=== PATIENT | male | born 1940 | race Caucasian/White ===

== ENCOUNTER → 2017-07-22 18:59 | Outpatient (CLI) | payer MEDICARE, SELFPAY | PROVIDERS: Visit Provider Nurse Practitioner Adult Health | DX: R31.9 Hematuria, unspecified (principal) | CPT/HCPCS: 87086 ==

== ENCOUNTER 2019-09-07 08:06 | Emergency (ER) | payer MEDICARE, OTHER, SELFPAY ==
[2019-09-07 08:07] VITALS: BP 149/94; PULSE 66; RESP 17; TEMP 36.4; O2SAT 96; BMI 29.1
--- NOTE | 2019-09-07 08:33 | CT_ITS ---
STUDY: CT ABDOMEN AND PELVIS WITH CONTRAST REASON FOR EXAM: Male, 78 years old. N/V/D, FEVER HX-BLADDER CA -- SURG-GB,APPY RADIATION DOSAGE (If Supplied By Facility): CTDIvol = ( 15.92 ) mGy, DLP = ( 1198.83 ) mGycm TECHNIQUE: Transaxial images were obtained from the dome of the diaphragm to the symphysis pubis without oral contrast. IV 100mL Isovue-300 was administered. Sagittal and coronal images were reconstructed. Individualized dose optimization techniques were used for this CT. COMPARISON: None. FINDINGS: Mild degree of increased markings at the lung bases suggestive of dependent bibasilar atelectasis. Minimal increased markings in the medial aspect of the right middle lobe suggestive of possible atelectasis and/or early infiltrate. There is a 5.3 mm noncalcified nodule in the anterior aspect of the right middle lobe as seen on axial image #4. A similar appearing nodule is seen along the lateral aspect of the right middle lobe as seen on axial image #3. Coronary artery calcification. Minimally dilated central intrahepatic biliary ducts most likely secondary to prior cholecystectomy. There are surgical clips in the gallbladder fossa consistent with a prior cholecystectomy. There are multiple benign calcified granulomata of the spleen. Normal pancreas. Normal bilateral adrenal glands. Normal right kidney. There is evidence of a left perinephric stranding. Mild degree of left hydronephrosis and left hydroureter due to a 3 mm calculus in the mid portion of the left ureter. Normal visualized stomach. Normal small intestine. Normal colon. The patient is status post appendectomy. There is diffuse atherosclerotic calcification of the abdominal aorta, without a demonstrated aneurysm. Normal inferior vena cava. Normal retroperitoneum. Normal urinary bladder. Inhomogeneous enlargement of the prostate. The prostate measures 5.8 cm x 5.6 cm. This causes indentation at the bladder base. Normal abdominal wall. There are degenerative changes of the visualized lumbar spine. CT/Abdomen/Pelvis W IV Cont ONLY IMPRESSION: 3 mm calculus in the left mid ureter causing left hydronephrosis and hydroureter with left perinephric stranding. There are 2 small noncalcified nodules in the right middle lobe. Electronically Signed: Tony Vance, at 9:33 EDT , Service support ,
--- NOTE | 2019-09-07 08:34 | ED.DCSUM_ITS ---
History of Present Illness Chief Complaint: Abd Pain Informant: Patient - Abdominal Pain/Flank Pain Onset: Yesterday Context: Sudden Onset Timing: Continuous - not colicky Quality: Aching, Cramping Location: LLQ Current Severity: Moderate Maximum Severity: Moderate Worsened by: Nothing Relieved by: Nothing - Nausea/Vomiting/Emesis GI Symptom: Negative for: Nausea, Vomiting - Diarrhea/Melena/Hematochezia GI Symptom: Negative for: Diarrhea, Melena, Hematochezia Associated Symptoms: Negative for: Dysuria, Frequency, Hematuria, Urgency Narrative: Relatively sudden onset of left lower quadrant pain, he states it was interestingly temporally associated with him taking his last of 3 days worth of antibiotic pills for urine infection. He said he had a kidney stone long ago but has never had this pain before. It does not radiate into his groin or his back or anywhere else, and there has been no migration. Denies any fevers. States he has been constipated before but had a fairly decent bowel movement this morning and did not have any improvement in the pain afterwards. No fevers. No nausea or vomiting. Prior appendectomy and cholecystectomy no other abdominal surgeries. - Past Medical History (1) Hyperlipidemia Status: Chronic (2) Bladder cancer Status: Resolved (3) History of recurrent UTI (urinary tract infection) Status: Chronic (4) BPH (benign prostatic hyperplasia) Status: Chronic Past Medical History - Allergies and Home Meds Allergies/Adverse Reactions: Allergies latex Allergy (Verified 09/07/19 08:35) Rash Kerlgoy-Hln-Luq Reductase Inhibitor Allergy (Verified 09/07/19 08:35) Pain in joints Primary Care Physician: Monica Ma MD [Primary Care Provider] - Review of Systems General: Denies: Chills, Fever, Sweats Eyes: Denies: Visual changes - bilaterally, Diplopia ENT: Denies: Rhinorrhea, Sore throat Cardiovascular: Denies: Chest pain, Palpitations Respiratory: Denies: Dyspnea, Cough, Dyspnea on exertion Gastrointestinal: Reports: Abdominal pain, Constipation. Denies: Nausea, Vomiting, Diarrhea, Melena, Hematochezia Genitourinary: Denies: Dysuria, Hematuria, Frequency Musculoskeletal: Denies: Back pain, Swelling, Extremity Pain Skin: Denies: Rash, Wounds Neurological: Denies: Headache, Weakness, Numbness Physical Exam Vital Signs/Narrative: Vital Signs Temp Pulse Resp BP Pulse Ox 09/07/19 08:07 97.5 F L 66 17 149/94 H 96 Inital Vital Signs reviewed: Yes General: Well nourished, Well developed, No Acute Distress Head: Normocephalic, Atraumatic Eyes: Perrl, EOMI ENT: Moist mucous membranes, No rhinorrhea Neck: Supple, Nontender Cardiovascular: Regular rate, Regular rhythm, No murmurs Respiratory: No distress, CTA bilaterally, Chest nontender Abdomen: Soft, Nondistended, Normal bowel sounds, Tender - LLQ only. Negative for: Guarding, Rebound tenderness, Pulsatile mass Back: Nontender, Normal Inspection. Negative for: CVA tenderness Extremities: Nontender, No edema Skin: Normal color, No rash, No Trauma Neurological: Alert, Oriented x3, Cranial nerves II-XII grossly intact, Normal Strength, Normal Sensation, Normal Gait Psychological: Normal affect, Normal Mood Diagnostic/Tx/Re-eval Impressions Abdomen/Pelvis CT 09/07/19 08:33 IMPRESSION: 3 mm calculus in the left mid ureter causing left hydronephrosis and hydroureter with left perinephric stranding. There are 2 small noncalcified nodules in the right middle lobe. Electronically Signed: Tony Pinky, at 9:33 EDT , Service support , 09/07/19 08:33 Abdomen/Pelvis W IV Cont ONLY [CT] Stat Laboratory Results 09/07/19 09/07/19 09/07/19 08:35 08:35 09:30 WBC 6.2 RBC 4.58 L Hgb 14.3 Hct 42.8 MCV 93.4 MCH 31.2 MCHC 33.4 RDW Std Deviation 40.1 RDW Coeff of Bambi 11.8 Plt Count 186 MPV 9.9 Immature Gran % (Auto) 0.300 Neut % (Auto) 75.1 H Lymph % (Auto) 9.3 L Osborne % (Auto) 14.7 H Eos % (Auto) 0.3 Baso % (Auto) 0.3 Absolute Neuts (auto) 4.7 Absolute Lymphs (auto) 0.58 L Nucleated RBC % 0 Sodium 136 Potassium 4.8 Chloride 103 Carbon Dioxide 27.0 Anion Gap 6 BUN 19 H Creatinine 1.53 H Estim Creat Clear Calc 44.38 Est GFR (MDRD) Af Amer 57 L Est GFR (MDRD) Non-Af 47 L BUN/Creatinine Ratio 12.4 Glucose 108 H Calcium 8.9 Urine Color Yellow Urine Clarity Sl. Cloudy Urine pH 6.0 Ur Specific [place] 1.015 Urine Protein 15 H Urine Glucose (UA) Normal Urine Ketones Negative Urine Occult Blood 150 H Urine Nitrite Negative Urine Bilirubin Negative Urine Urobilinogen Normal Ur Leukocyte Esterase 100 H Urine RBC 10-25 SEEN Urine WBC 10-25 SEEN Ur Squamous Epith Cells 0-5 SEEN Urine Bacteria 1+ Urine Mucus 0 SEEN - Medical Decision Making Patient was given morphine and some IV fluids, he felt much better afterwards. Results as above, all shows a 3 mm stone in the distal left ureter, with hydronephrosis, this is likely causing his symptoms. No evidence of diverticulitis. No leukocytosis. He does have some indicators of possible infection in his urine. He states he just finished what sounds like Bactrim 3- day course for that, he is well, not septic, and stable for discharge home so I will culture his urine, place him on cephalexin for 1 week, and we discussed expectant management for the small stone. Sent home with strainers, prescrip tion for analgesics, follow-up with urology if he goes more than 1 week without passing the stone, returning to the ER for intractable symptoms, fevers, etc. He is comfortable with that plan. ED Disposition - Plan for ED Patient: Disposition: Home or Assisted Living Diagnosis: Urolithiasis, Ureteral colic Instructions: ED Renal Stone w Colic Prescriptions: Cephalexin [Keflex] 500 mg PO 4X/DAY 7 Days #28 cap Transmission Status: Pending to [id number] Oxycodone HCl/Acetaminophen [Percocet 5/325] 1 tablet PO Q6H PRN PRN 3 Days #12 tablet PRN Reason: Pain Transmission Status: Received by [id number] Referrals: Monica Ma MD [Primary Care Provider] - Rex Arrieta MD [STAFF PHYSICIAN] - 1 Week if not improving
[2019-09-07 08:45] LABS: Absolute Lymphocyte Count 0.58 X10^3/uL (0.83-4.51); Absolute Neutrophil Count 4.7 X10^3/uL (2.0-7.7); Basophil# 0.02 X10^3/uL; Basophil% 0.3 % (0-1); Eosinophil# 0.02 X10^3/uL; Eosinophils% 0.3 % (0-5); Hematocrit 42.8 % (40-54); Hemoglobin 14.3 g/dL (13.0-16.5); Lymphocyte # 0.58 X10^3/ul (4.0); Lymphocyte % 9.3 % (19-41); Mean Corp Hgb Conc 33.4 g/dL (32-36); Mean Corpuscular Hgb 31.2 pg (27.0-32.0); Mean Corpuscular Volume 93.4 fL (80-94); Mean Platelet Vol. 9.9 fl (6.2-12.0); Monocyte# 0.91 X10^3/uL; Monocyte% 14.7 % (0-10); NRBC Flagged by Analyzer 0 % (0-5); Neutrophil # 4.66 X10^3/uL (2.7-7.7); Neutrophil % 75.1 % (47-70); POSITIVE DIFFERENTIAL YES; Platelet Count 186 K/mm3 (150-450); RBC Distribution Width CV 11.8 % (11.6-14.6); RBC Distribution Width SD 40.1 fl (35.1-43.9); Red Blood Count 4.58 M/mm3 (4.6-6.2); White Blood Count 6.2 K/mm3 (4.4-11.0)
[2019-09-07] MEDS: Morphine 2 MG/ML Syringe IV (08:45)
[2019-09-07] MEDS: 0.9% Normal Saline 1,000 ML 1000 ML IV (08:45)
[2019-09-07 08:49] LABS: Differential Indicated SCAN CRITERIA MET
[2019-09-07 09:04] LABS: Anion Gap 6 (5-15); BUN 19 mg/dL (7-18); BUN/Creat Ratio 12.4 RATIO (10-20); Calcium,Total 8.9 mg/dL (8.5-10.1); Chloride 103 mmol/L (98-107); Creatinine, Serum 1.53 mg/dL (0.70-1.30); EST Glomerular Filtration Rate 47 mL/min (>60); Est Glom Filt Rate - Afr Amer 57 mL/min (>60); Estimated Creatinine Clearance 44.38 ml/min; Glucose 108 mg/dL (74-106); Potassium 4.8 mmol/L (3.5-5.1); Sodium Level 136 mmol/L (136-145)
[2019-09-07 09:37] LABS: Color, Urine Yellow (Yellow); Glucose, Dipstick Normal (Normal); Ketone-Dipstick Negative (Negative); Leukocyte Esterase-Dipstick 100 /ul (Negative); Mucous, Urine 0 SEEN /hpf (<or=2+); Nitrite-Dipstick Negative (Negative); Occult Blood-Urine 150 /ul (Negative); Protein-Dipstick 15 mg/dl (Negative); Specific Gravity, Urine 1.015 (1.002-1.030); Urine Bilirubin Dipstick Negative (Negative); Urine Clarity Sl. Cloudy (Clear); Urine Urobilinogen Normal (Normal)
[2019-09-07 09:44] LABS: Bacteria 1+ /hpf (None Seen); Red Blood Cells-Urine 10-25 SEEN /hpf (0-5); Squamous Epithelial Cells - UA 0-5 SEEN /hpf (0-5); White Blood Cells 10-25 SEEN /hpf (0-5)
[2019-09-07 10:16] VITALS: BP 155/83; PULSE 57; RESP 16; TEMP 37.1; O2SAT 99
[2019-09-07] MEDS: oxyCODONE 5 MG Tablet PO (10:23)
[2019-09-07] MEDS: Cephalexin 250 MG Capsule 500 MG PO (10:23)
== END 2019-09-07 10:26 | disposition home or self-care (01) ==
PROVIDERS: Emergency Provider Emergency Medicine; PCP Internal Medicine
DX: N13.2 Hydronephrosis with renal and ureteral calculous obstruction (principal); K59.00 Constipation, unspecified; E78.5 Hyperlipidemia, unspecified; N40.0 Benign prostatic hyperplasia without lower urinary tract symptoms; Z79.82 Long term (current) use of aspirin; Z79.899 Other long term (current) drug therapy; Z91.040 Latex allergy status; Z88.8 Allergy status to other drugs, medicaments and biological substances; Z85.51 Personal history of malignant neoplasm of bladder; Z87.440 Personal history of urinary (tract) infections; Z90.49 Acquired absence of other specified parts of digestive tract
CPT/HCPCS: 74177; 80048; 81001; 85025; 87086; 87088; 96361; 96374; 99283; Q9967; A4216

== ENCOUNTER 2019-09-11 03:32 | Emergency (ER) | payer MEDICARE, OTHER, SELFPAY ==
[2019-09-11 03:33] VITALS: BP 158/69; PULSE 65; RESP 18; TEMP 36.8; O2SAT 98; BMI 30.2
--- NOTE | 2019-09-11 03:40 | ED.DCSUM_ITS ---
History of Present Illness Chief Complaint: Flank Pain Informant: Patient - Abdominal Pain/Flank Pain Onset: Hours - 2-3 Context: Sudden Onset Timing: Continuous, Waxes and wanes Quality: Aching Location: LLQ Current Severity: Moderate Maximum Severity: Severe Worsened by: Nothing Relieved by: Nothing - Except maybe a little better after taking a single Percocet - Nausea/Vomiting/Emesis GI Symptom: Nausea. Negative for: Vomiting - Diarrhea/Melena/Hematochezia GI Symptom: Negative for: Diarrhea, Melena, Hematochezia Associated Symptoms: Negative for: Dysuria, Frequency, Hematuria, Urgency Narrative: Patient was here 3 or 4 days ago, seen by myself for the same complaint, we diagnosed him with a 3 mm mid ureteral stone with resulting hydronephrosis on the left. He was prescribed Percocet. He states he remained pain-free at home until tonight when the pain started again. He took a Percocet but it did not relieve the pain adequately so he presents to the emergency department. No new symptoms. Pain is in the same location as it was several days ago. Prior similar symptoms: Yes - See above - Past Medical History (1) BPH (benign prostatic hyperplasia) Status: Chronic (2) History of recurrent UTI (urinary tract infection) Status: Chronic (3) Hyperlipidemia Status: Chronic (4) Bladder cancer Status: Resolved Past Medical History - Allergies and Home Meds Allergies/Adverse Reactions: Allergies latex Allergy (Verified 09/07/19 08:35) Rash Qccvrlm-Fln-Uie Reductase Inhibitor Allergy (Verified 09/07/19 08:35) Pain in joints Primary Care Physician: Monica Ma MD [Primary Care Provider] - Smoking Status: Former smoker Review of Systems General: Denies: Chills, Fever, Sweats Eyes: Denies: Visual changes - bilaterally, Diplopia ENT: Denies: Rhinorrhea, Sore throat Cardiovascular: Denies: Chest pain, Palpitations Respiratory: Denies: Dyspnea, Cough, Dyspnea on exertion Gastrointestinal: Reports: Abdominal pain, Nausea. Denies: Vomiting, Diarrhea, Melena, Hematochezia Genitourinary: Denies: Dysuria, Hematuria, Frequency Musculoskeletal: Denies: Back pain, Extremity Pain Skin: Denies: Rash, Wounds Neurological: Denies: Headache, Weakness, Numbness Physical Exam Vital Signs/Narrative: Vital Signs Temp Pulse Resp BP Pulse Ox 09/11/19 03:33 98.2 F 65 18 158/69 H 98 Inital Vital Signs reviewed: Yes General: Well nourished, Well developed, No Acute Distress - Well-appearing, conversive in full sentences Head: Normocephalic, Atraumatic Eyes: Perrl, EOMI ENT: Moist mucous membranes, No rhinorrhea Neck: Supple, Nontender Cardiovascular: Regular rate, Regular rhythm, No murmurs Respiratory: No distress, CTA bilaterally, Chest nontender Abdomen: Soft, Nondistended, Normal bowel sounds, No masses, Tender - Very mild, lateral left lower quadrant/flank. Negative for: Guarding, Rebound tenderness Back: Nontender, Normal Inspection. Negative for: CVA tenderness Extremities: Nontender, No edema Skin: Normal color, No rash Neurological: Alert, Oriented x3, Cranial nerves II-XII grossly intact, Normal Strength, Normal Sensation Psychological: Normal affect, Normal Mood Diagnostic/Tx/Re-eval Laboratory Tests 09/11/19 Range/Units 03:45 Urine Color Yellow (Yellow) Urine Clarity Clear (Clear) Urine pH 6.0 (5.0 - 8.0) Ur Specific [place] 1.015 (1.002-1.030) Urine Protein 15 H (Negative) mg/dl Urine Glucose (UA) Normal (Normal) mg/dl Urine Ketones Negative (Negative) mg/dl Urine Occult Blood 250 H (Negative) /ul Urine Nitrite Negative (Negative) Urine Bilirubin Negative (Negative) mg/dL Urine Urobilinogen Normal (Normal) mg/dl Ur Leukocyte Esterase 25 H (Negative) /ul Urine RBC 5-10 SEEN (0-5) /hpf Urine WBC 0-5 SEEN (0-5) /hpf Ur Squamous Epith Cells 0 SEEN (0-5) /hpf Urine Bacteria 0 SEEN (None Seen) /hpf Urine Mucus 0 SEEN (<or=2+) /hpf - Medical Decision Making Patient was given morphine 2 mg, and on reexamination he is keenly alert and pain-free feeling much better. He received Zofran in route by EMS. His urine is noted as above. There is no pyuria. He had a similar-looking urinalysis couple days ago, the culture returned showing E. coli less than 1000 colony- forming units, which is not indicative of acute infection. Patient was reassured, I do not think he needs repeat blood work or imaging at this time, for the 3 mm mid ureteral stone, expectant management is indicated. I advised that it would be safe for him to take 2 Percocet at one time if he has recurrent episodes of pain, and if he needs to return to the ER he certainly is welcome to. If he goes a week without passing the stone and still having painful episodes, he should follow-up with urology, he is comfortable with that plan. ED Disposition - Plan for ED Patient: Disposition: Home or Assisted Living Diagnosis: Ureteral colic, Urolithiasis Instructions: ED Renal Stone w Colic Referrals: Monica Ma MD [Primary Care Provider] - Rex Arrieta MD [STAFF PHYSICIAN] - 1 Week if not improving Additional Instructions: If you have recurrent significant pain, you may take 2 of the Percocet tablets at one time to try to help control your pain. In addition, and occasional ibuprofen would be okay as well.
[2019-09-11 03:53] LABS: Bacteria 0 SEEN /hpf (None Seen); Mucous, Urine 0 SEEN /hpf (<or=2+); Squamous Epithelial Cells - UA 0 SEEN /hpf (0-5)
[2019-09-11 03:54] LABS: Color, Urine Yellow (Yellow); Glucose, Dipstick Normal (Normal); Ketone-Dipstick Negative (Negative); Leukocyte Esterase-Dipstick 25 /ul (Negative); Nitrite-Dipstick Negative (Negative); Occult Blood-Urine 250 /ul (Negative); Protein-Dipstick 15 mg/dl (Negative); Specific Gravity, Urine 1.015 (1.002-1.030); Urine Bilirubin Dipstick Negative (Negative); Urine Clarity Clear (Clear); Urine Urobilinogen Normal (Normal)
[2019-09-11] MEDS: Morphine 2 MG/ML Syringe IV (03:57)
[2019-09-11 04:24] LABS: Red Blood Cells-Urine 5-10 SEEN /hpf (0-5); White Blood Cells 0-5 SEEN /hpf (0-5)
[2019-09-11 04:43] VITALS: BP 132/78; PULSE 72; RESP 18; O2SAT 100
--- NOTE | 2019-09-11 04:43 | ED.RN ---
WAITING FOR TO COME GET HIM.
== END 2019-09-11 05:45 | disposition home or self-care (01) ==
PROVIDERS: Emergency Provider Emergency Medicine; PCP Internal Medicine
DX: N13.2 Hydronephrosis with renal and ureteral calculous obstruction (principal); N40.0 Benign prostatic hyperplasia without lower urinary tract symptoms; E78.5 Hyperlipidemia, unspecified; Z79.82 Long term (current) use of aspirin; Z79.899 Other long term (current) drug therapy; Z91.040 Latex allergy status; Z88.8 Allergy status to other drugs, medicaments and biological substances; Z87.440 Personal history of urinary (tract) infections; Z85.51 Personal history of malignant neoplasm of bladder; Z87.891 Personal history of nicotine dependence
CPT/HCPCS: 81001; 96374; 99285